=== PATIENT | female | born 1990 | race Caucasian/White ===

== ENCOUNTER 2016-07-14 06:49 | Day surgery (SDC) | payer OTHER ==
[~2016-07-14 06:49] MED LIST: RINGERS SOLUTION,LACTATED 1,000 ML IV PRN
[2016-07-14] MEDS ORDERED: RINGERS SOLUTION,LACTATED 1,000 ML IV ONE ×2 (07:29→08:48)
[2016-07-14] MEDS ORDERED: BUPIVACAINE HCL/EPINEPHRINE 50 ML VIAL IJ ONE ×2 (08:25)
[2016-07-14] MEDS ORDERED: oxyCODONE HCL/ACETAMINOPHEN 1 TAB TABLET PO PRN (09:54)
[2016-07-14] MEDS ORDERED: IBUPROFEN 800 MG TABLET PO PRN (09:55)
--- NOTE | 2016-07-14 11:08 | OR ---
Operative Report - Dictated Report Narrative: Operative report: 07/14/2016 Preoperative diagnosis: Desires permanent sterilization, previous right salpingectomy with ectopic Postoperative diagnosis: Same Procedure: Laparoscopic left salpingectomy and cauterization of right corneal region Surgeon: Richa Borja D.O. Groundskeeper Supervisor: OR staff Anesthesia: Gen. IV fluids: 600 Milliliters Urine output: 175 Milliliters Findings: Normal-appearing uterus and ovaries and left fallopian tube, absent right fallopian tube EBL: Minimal Milliliters Drains: None Pathology: fallopia left tube Complications: None Condition: Stable The patient was taken to the operating room. Anesthesia was found to be adequate. The patient was prepped and draped in the normal sterile fashion in the dorsal lithotomy position. A sterile speculum was then inserted into the vagina. The [employer] uterine manipulator was then inserted into the uterus. The speculum was removed. A red rubber was then inserted into the bladder to drain throughout the procedure. Attention was then turned to the abdomen. Local anesthetic was then injected within the umbilicus. A 5 mm skin incision was then made with the scalpel. A hemostat was then used to bluntly dissect down to the fascia. The 5 mm camera was then inserted into the trocar and under direct visualization inserted into the abdomen. The abdomen was then insufflated to 12 mmHg. The abdomen was then surveyed. Absent right fallopian tube with a small nub on the right corneal region otherwise normal appearing anatomy. Attention was then turned to the left lower quadrant, the peritoneum was mapped with local anesthetic, skin incised, subcutaneous tissue bluntly dissected, and a 5 mm trocar entered into the peritoneum under direct visualization. These steps were then repeated on the opposite side. The fallopian tube was then grasped. Electrocautery was then used to sequentially cauterize, cut, and remove the entire fallopian tube. The right cornual region was then cauterized with the Kleppingers. The left fallopian tube was then removed under direct visualization and sent to pathology. The pedicles were then inspected and found to be hemostatic. The abdomen was then desufflated. The trochars were removed under direct visualization. The skin incisions were then reapproximated with 4-0 Vicryl, benzoin and Steri-Strips. Band-Aids were then placed. The whole, uterine manipulator was then removed and sites were hemostatic. The red rubber catheter was then removed. Clear yellow urine was noted throughout the entire procedure. The patient tolerated the procedure well. Sponge, lap, needle, and instrument counts were correct throughout the entire procedure. The patient was taken to the recovery room in stable condition.
--- NOTE | 2016-07-14 11:17 | OR ---
Operative Report - Dictated Report Narrative: Operative report: 07/14/2016 Preoperative diagnosis: Desires permanent sterilization Postoperative diagnosis: Same Procedure: Laparoscopic bilateral salpingectomies Surgeon: Richa Borja D.O. [employer] Folding Machine Operator: OR staff Anesthesia: Gen. IV fluids: 800 Milliliters Urine output: 30 Milliliters Findings: Normal-appearing uterus, tubes, and ovaries EBL: 30 Milliliters Drains: None Pathology: Bilateral fallopian tubes Complications: Brisk bleeding from the cervix noted at the tenaculum site and hemostasis obtained with suture Condition: Stable The patient was taken to the operating room. Anesthesia was found to be adequate. The patient was prepped and draped in the normal sterile fashion in the dorsal lithotomy position. A sterile speculum was then inserted into the vagina. The [employer] uterine manipulator was then inserted into the uterus. The speculum was removed. A red rubber was then inserted into the bladder to drain throughout the procedure. Attention was then turned to the abdomen. Local anesthetic was then injected within the umbilicus. A 5 mm skin incision was then made with the scalpel. A hemostat was then used to bluntly dissect down to the fascia. The 5 mm camera was then inserted into the trocar and under direct visualization inserted into the abdomen. The abdomen was then insufflated to 12 mmHg. The abdomen was then surveyed. []. Attention was then turned to the left lower quadrant, the peritoneum was mapped with local anesthetic, skin incised, subcutaneous tissue bluntly dissected, and a 5 mm trocar entered into the peritoneum under direct visualization. These steps were then repeated on the opposite side. The fallopian tube was then grasped. Electrocautery was then used to sequentially cauterize, cut, and remove the entire fallopian tube. This was then repeated on the opposite side. The fallopian tubes were then removed under direct visualization and sent to pathology. The pedicles were then inspected and found to be hemostatic. The abdomen was then desufflated. The trochars were removed under direct visualization. The skin incisions were then reapproximated with 4-0 Vicryl, benzoin and Steri-Strips. Band-Aids were then placed. The whole, uterine manipulator was then removed. Brisk bleeding was noted from the tenaculum site and 2-0 Vicryl in a figure of 8 suture was used and hemostasis was obtained. The red rubber catheter was then removed. Clear yellow urine was noted throughout the entire procedure. The patient tolerated the procedure well. Sponge, lap, needle, and instrument counts were correct throughout the entire procedure. The patient was taken to the recovery room in stable condition.
[2016-07-14 13:15] VITALS: BP 128/66
== END 2016-07-14 06:50 | disposition home or self-care (01) ==
LOC: AMB 06:49
PROVIDERS: ATTEND Obstetrics & Gynecology Gynecologic Oncology
PROC: 0UT74ZZ Resection of Bilateral Fallopian Tubes, Percutaneous Endoscopic Approach (ICD-10-PCS; principal; 2016-07-14 08:00)
DX: Z30.2 Encounter for sterilization (principal); Z87.891 Personal history of nicotine dependence; Z68.34 Body mass index [BMI] 34.0-34.9, adult

== ENCOUNTER 2016-08-29 19:29 | Outpatient (CLI) | payer OTHER | END 2016-08-29 19:30 | disposition home or self-care (01) | LOC: LAB 19:29 | DX: J02.9 Acute pharyngitis, unspecified (principal) ==